=== PATIENT | male | born 1960 | race Hispanic/Latino ===

== ENCOUNTER → 2018-01-05 10:48 | Outpatient (CLI) | payer OTHER, SELFPAY ==
--- NOTE | 2018-01-05 | DI.RAD.S_ITS ---
PROCEDURE: XR LUMBAR SPINE 2-3V INDICATIONS: SPINE PAIN AFTER FALL TECHNIQUE: 3 views of the lumbar spine were acquired. COMPARISON: None. FINDINGS: Bones: 5 [id number] vertebrae are present. There is normal bony alignment. No vertebral body compression fractures. No suspicious bony lesions, apparent left laminotomy L5-S1. Disc narrowing L5-S1. Soft tissues: Overlying bowel gas pattern is normal. No suspicious soft tissue calcifications. IMPRESSION: 1. No acute bony abnormality. 2. Apparent disc degeneration L5-S1 post left laminotomy. Correlate with clinical history. Dictated by: Rajinder Castaneda M.D. on 01/05/2018 at 11:31 Approved by: Rajinder Castaneda M.D. on 01/05/2018 at 11:33
== END ==
PROVIDERS: PCP Family Medicine; Visit Provider Family Medicine
DX: M54.5 Low back pain (principal); M51.37 Other intervertebral disc degeneration, lumbosacral region
CPT/HCPCS: 72100

== ENCOUNTER → 2020-06-08 12:33 | Outpatient (ROUT) | payer OTHER, SELFPAY ==
[2020-06-08 12:58] LABS: COVID19 -Nasal RAPID Negative (Negative)
[2020-06-08 13:10] LABS: Influenza A - CEPHEID Flu A NEGATIVE (NEGATIVE); Influenza B - CEPHEID Flu B NEGATIVE (NEGATIVE)
== END ==
PROVIDERS: PCP Family Medicine; Visit Provider Family Medicine
DX: R50.9 Fever, unspecified (principal); R05 Cough; R52 Pain, unspecified; Z11.59 Encounter for screening for other viral diseases
CPT/HCPCS: 87502; 87635

== ENCOUNTER → 2020-09-18 15:04 | Outpatient (ROUT) | payer OTHER, SELFPAY ==
[2020-09-18 16:15] LABS: Influenza A - CEPHEID Flu A NEGATIVE (NEGATIVE); Influenza B - CEPHEID Flu B NEGATIVE (NEGATIVE)
[2020-09-18 16:42] LABS: COVID19 -Nasal RAPID POSITIVE (Negative)
== END ==
PROVIDERS: PCP Family Medicine; Visit Provider Family Medicine
DX: U07.1 COVID-19 (principal)
CPT/HCPCS: 87502; 87635

== ENCOUNTER → 2020-10-04 13:11 | Outpatient (ROUT) | payer OTHER, SELFPAY ==
[2020-10-04 13:41] LABS: COVID19 -Nasal RAPID Negative (Negative)
== END ==
PROVIDERS: PCP Family Medicine; Visit Provider Family Medicine
DX: Z20.822 Contact with and (suspected) exposure to COVID-19 (principal)
CPT/HCPCS: 87635

== ENCOUNTER → 2021-03-13 14:57 | Outpatient (ROUT) | payer OTHER, SELFPAY ==
[2021-03-13 15:27] LABS: COVID19 -Nasal RAPID Negative (Negative)
== END ==
PROVIDERS: PCP Family Medicine; Visit Provider Family Medicine
DX: Z20.822 Contact with and (suspected) exposure to COVID-19 (principal)
CPT/HCPCS: 87635

== ENCOUNTER → 2021-11-06 10:49 | Outpatient (CLI) | payer OTHER, SELFPAY ==
--- NOTE | 2021-11-06 | DI.RAD.S_ITS ---
PROCEDURE: XR CERVICAL SPINE 2V OR 3V INDICATIONS: cervical and thoracic strain TECHNIQUE: 3 view(s) of the cervical spine were acquired. COMPARISON: None. FINDINGS: Bones: No fractures or dislocations to the T1 level. C4-5, C5-6, and C6-7 demonstrate disc space narrowing and anterior osteophytes. The lateral masses of C1 appear intact on the odontoid view. No suspicious bony lesions. Soft tissues: No prevertebral soft tissue swelling. IMPRESSION: Multilevel degenerative disc disease measuring C4-5, C5-6, and C6-7. Dictated by: Javier Clemente M.D. on 11/06/2021 at 12:01 Approved by: Javier Clemente M.D. on 11/06/2021 at 12:06
== END ==
PROVIDERS: PCP Family Medicine; Referring Provider Family Medicine; Visit Provider Family Medicine
DX: S16.1XXA Strain of muscle, fascia and tendon at neck level, initial encounter (principal); S29.012A Strain of muscle and tendon of back wall of thorax, initial encounter; M50.321 Other cervical disc degeneration at C4-C5 level; X58.XXXA Exposure to other specified factors, initial encounter
CPT/HCPCS: 72040